=== PATIENT | female | born 1995 | race Two or more races ===

== ENCOUNTER 2024-03-13 21:30 | Emergency (ER) | payer MEDICAID, OTHER ==
[~2024-03-13] VITALS: Ht 160 cm; Wt 97.0 kg
[2024-03-13] MEDS ORDERED: ACETAMINOPHEN 500 MG TAB PO ONE (22:00)
[2024-03-13] MEDS ORDERED: IBUPROFEN 600 MG TAB PO ONE (22:00)
[2024-03-14 02:29] VITALS: BP 146/42; PULSE 99; RESP 18; TEMP 98.3; O2SAT 95
[2024-03-14] MEDS: ONDANSETRON ODT 4 MG TAB PO ONE (02:46)
[2024-03-14] MEDS: ACETAMINOPHEN/CODEINE#3 (300/30mg) TAB PO ONE (02:46)
[2024-03-14] MEDS ORDERED: ACE3T PO (03:17)
== END 2024-03-14 03:27 | disposition home or self-care (01) ==
LOC: ER 21:30
DX: S46.811A Strain of other muscles, fascia and tendons at shoulder and upper arm level, right arm, initial encounter (principal); Z98.890 Other specified postprocedural states; Z88.0 Allergy status to penicillin; Z79.899 Other long term (current) drug therapy; V89.2XXA Person injured in unspecified motor-vehicle accident, traffic, initial encounter; Y93.89 Activity, other specified; Y92.89 Other specified places as the place of occurrence of the external cause; Y99.8 Other external cause status
CPT/HCPCS: 71045; 73000; 73030; 99284; Q0162